=== PATIENT | male | born 1970 | race Caucasian/White ===

== ENCOUNTER 2016-12-03 22:22 | Emergency (ER) | payer OTHER ==
--- NOTE | 2016-12-03 22:40 | ED Physician Documentation ---
General Adult - HISTORIAN Historian: patient - HPI Chief Complaint: Lower Extremity Injury Onset: hours (12 hour ago) Modifying Factors: worse with weight bearing Further Comments: yes (Ryan has a left leg cramp this AM. While trying to work it out patient hit his left heal on the floor. Has had some immediate pain , pain with walking all day. No bruising noted.) - ROS CONST: no problems - PAST HX Past History: none Surgeries/Procedures: other (sinus drainage) - SOCIAL HX Smoking History: less than 1 pack/day (1/2-3/4 ppd) Alcohol Use: occasionally Drug Use: none - FAMILY HX Family History: Yes (cancer of prostate and DM) - REVIEWED ASSESSMENTS Nursing Assessment Reviewed: Yes Vitals Reviewed: Yes ED Results Lab/Radiology - Radiology Radiology Impressions: calcaneous x-ray: normal General Adult Physical Exam - PHYSICAL EXAM GENERAL APPEARANCE: mild distress NECK: normal inspection, thyroid normal, supple RESPIRATORY: no resp distress, chest non-tender, breath sounds normal. No: wheezes, rales, rhonchi CVS: reg rate & rhythm, heart sounds normal, equal pulses, no murmur, no gallop SKIN: warm/dry, normal color EXTREMITIES: other (tenderness over the calcaneous over the sole, no ecchymosis noted.) NEURO: oriented X3, mood/affect nml Discharge Clincal Impression: Contusion Qualifiers: Encounter type: initial encounter Contusion area: foot Laterality: left Qualified Code(s): S90.32XA - Contusion of left foot, initial encounter Referrals: Cristofer Cohen MD [Primary Care Provider] - 2 Days Additional Instructions: Start taking some Aleve 220mg, two tablets twice a day with food. Consider crutches to help keep the weight off the heal for comfort measures. TRy heal cup and well padded shoe. Condition: Stable Disposition: 01 HOME, SELF-CARE Decision to Admit: NO Date of Decison to Admit: 12/03/16 Decision Time: 23:27
[2016-12-04 00:29] VITALS: BP 123/85
--- NOTE | 2016-12-04 02:02 | Diagnostic Imaging Report ---
SUSIE CEBALLOS [facility] [id number] [facility] [address] [address] Report Submission Date: Dec 03, 2016 11:29:45 PM CDT Patient Study Name: WILTON GALEANA Date: Dec 03, 2016 10:57:52 PM CDT Modality Type: CR Gender: M Description: LOWER EXTREMITY : 70 Institution: [facility] Physician: SUSIE CEBALLSO Left calcaneus 2 views History: Pain after injury Findings: Small dorsal and plantar heel spurs are observed. The calcaneus is intact without fracture or dislocation. Electronically signed on Dec 03, 2016 11:29:45 PM CDT by: Luciano RODRÍGUEZ
== END 2016-12-03 23:40 | disposition home or self-care (01) ==
LOC: ED 22:22
DX: S90.32XA Contusion of left foot, initial encounter (principal); X58.XXXA Exposure to other specified factors, initial encounter; Y93.9 Activity, unspecified; Y99.9 Unspecified external cause status
CPT/HCPCS: 73650; 99283